=== PATIENT | female | born 1960 | race Caucasian/White ===

== ENCOUNTER 2017-11-11 11:43 | Inpatient (IN) | payer SELFPAY ==
[~2017-11-11] VITALS: Ht 152.4 cm; Wt 47.6 kg
[2017-11-11] MEDS ORDERED: SODIUM CHLORIDE 0.9% 1000ML BAG (SEPSIS BOLUS) IV ONE (13:00)
[2017-11-11] MEDS ORDERED: LEVOFLOXACIN 750MG PREMIX 150 ML IV ONE (13:00)
[2017-11-11] MEDS ORDERED: HALOPERIDOL LACTATE 5MG/ML VIAL IM ONE ×2 (14:45→15:15)
[2017-11-11] MEDS ORDERED: LORAZEPAM 2MG/ML CPJ IM ONE ×2 (14:45→15:15)
[2017-11-11] MEDS ORDERED: DIPHENHYDRAMINE 50MG/ML VIAL IM STA (15:02)
[2017-11-11 15:28] LABS: BASOPHILS % 2.5 % (0.0-2.0); EOSINOPHILS % 0.8 % (0.0-5.0); HEMATOCRIT. 40.2 % (36.0-48.0); HEMOGLOBIN. 13.4 g/dL (12.0-16.0); LYMPHOCYTES % 31.4 % (20.0-50.0); MEAN CORPUSCULAR HEMOGLOBIN 31.5 pg (28.0-32.0); MEAN CORPUSCULAR VOLUME 94.6 fL (81.0-99.0); MEAN PLATELET VOLUME 7.2 fl (7.4-10.4); MONOCYTES % 7.4 % (2.0-8.0); NEUTROPHILS % 57.9 % (40.0-76.0); PLATELET 311 x1000/uL (130-400); RED BLOOD CELL COUNT 4.25 mill/uL (4.2-5.4)
[2017-11-11 15:31] LABS: CHLORIDE 106 mEq/L (98-107)
[2017-11-11 15:36] LABS: PARTIAL THROMBOPLASTIN TIME 25.4 sec (23.4-31.0)
[2017-11-11 15:39] LABS: CLARITY URINE CLEAR (CLEAR); COLOR URINE YELLOW (YELLOW); KETONES URINE NEGATIVE (NEGATIVE); LEUKOCYTE ESTERASE URINE NEGATIVE (NEGATIVE); NITRITE URINE NEGATIVE (NEGATIVE); OCCULT BLOOD URINE NEGATIVE (NEGATIVE); PH URINE 6.5 (4.5-8.0); PROTEIN URINE NEGATIVE (NEGATIVE); SPECIFIC GRAVITY URINE 1.011 (1.005-1.030); UROBILINOGEN URINE 0.2 E.U./dL (0.2-1.0)
[2017-11-11 15:43] LABS: TROPONIN I < 0.02 ng/mL (0.00-0.04)
[2017-11-11] MEDS ORDERED: ASPIRIN 300MG SUPP PR ONE (16:45)
[2017-11-11 16:48] LABS: *AMPHETAMINES SCREEN URINE NEGATIVE (NEGATIVE); *BARBITURATES SCREEN URINE NEGATIVE (NEGATIVE); *BENZODIAZEPINES SCREEN URINE NEGATIVE (NEGATIVE); *COCAINE SCREEN URINE NEGATIVE (NEGATIVE); CANNABINOID URINE SCREEN NEGATIVE (NEGATIVE); METHADONE URINE SCREEN NEGATIVE (NEGATIVE); OPIATES URINE SCREEN PRESUMTIVE POSITIVE (NEGATIVE); PHENCYCLIDINE URINE SCREEN NEGATIVE (NEGATIVE)
[2017-11-11 22:30] VITALS: BP 116/69
[2017-11-11 23:00] VITALS: BP 116/69
[2017-11-12] MEDS ORDERED: DOCUSATE SODIUM 100MG CAPSULE PO PRN (02:15)
[2017-11-12] MEDS ORDERED: GUAIFENESIN 200MG/10ML SUGAR FREE UDC PO PRN (02:15)
[2017-11-12] MEDS ORDERED: ONDANSETRON HCL 4MG/2ML VIAL IV PRN (02:15)
[2017-11-12] MEDS ORDERED: ACETAMINOPHEN 325MG TABLET PO PRN (02:15)
[2017-11-12] MEDS ORDERED: CLONIDINE 0.1MG TABLET PO PRN (02:15)
[2017-11-12] MEDS: DEXT 5%/0.45% NACL 1000ML 1,000 ML IV SCH ×2 (03:59→16:20)
[2017-11-12 04:00] VITALS: BP 135/79
[2017-11-12 08:00] VITALS: BP 139/81
[2017-11-12] MEDS: FOLIC ACID 1MG TABLET PO SCH (08:12)
[2017-11-12] MEDS: MULTIVITAMINS,THER W-MINERALS TABLET PO SCH (08:12)
[2017-11-12] MEDS: THIAMINE HCL 100MG TABLET PO SCH (08:13)
[2017-11-12] MEDS: ASPIRIN 81MG EC TABLET PO SCH (08:13)
[2017-11-12] MEDS: AMLODIPINE 10MG TABLET PO SCH (08:13)
[2017-11-12] MEDS: LORAZEPAM 2MG/ML CPJ IV PRN ×3 (08:14→18:17)
[2017-11-12 12:00] VITALS: BP 107/49
[2017-11-12 16:00] VITALS: BP 126/60
[2017-11-12 20:00] VITALS: BP 115/71
[2017-11-13] VITALS: BP 119/50
[2017-11-13 04:00] VITALS: BP 120/67
[2017-11-13] MEDS: DEXT 5%/0.45% NACL 1000ML 1,000 ML IV SCH ×2 (05:12→12:32)
[2017-11-13 07:10] LABS: EOSINOPHILS % 3.7 % (0.0-5.0); HEMATOCRIT. 39.5 % (36.0-48.0); HEMOGLOBIN. 13.6 g/dL (12.0-16.0); LYMPHOCYTES % 37.4 % (20.0-50.0); MEAN CORPUSCULAR HEMOGLOBIN 32.5 pg (28.0-32.0); MEAN PLATELET VOLUME 7.5 fl (7.4-10.4); MONOCYTES % 8.1 % (2.0-8.0); NEUTROPHILS % 48.8 % (40.0-76.0); PLATELET 266 x1000/uL (130-400); RED CELL DISTRIBUTION WIDTH 12.6 % (11.6-14.6)
[2017-11-13 07:42] LABS: CHLORIDE 104 mEq/L (98-107)
[2017-11-13 08:00] VITALS: BP 124/57
[2017-11-13] MEDS: ASPIRIN 81MG EC TABLET PO SCH (08:29)
[2017-11-13] MEDS: AMLODIPINE 10MG TABLET PO SCH (08:29)
[2017-11-13] MEDS: MULTIVITAMINS,THER W-MINERALS TABLET PO SCH (08:29)
[2017-11-13] MEDS: FOLIC ACID 1MG TABLET PO SCH (08:29)
[2017-11-13] MEDS: THIAMINE HCL 100MG TABLET PO SCH (08:30)
[2017-11-13 12:00] VITALS: BP 117/67
[2017-11-13 16:00] VITALS: BP 122/56
[2017-11-13 20:00] VITALS: BP 106/61
[2017-11-14] VITALS: BP 115/65
[2017-11-14 04:00] VITALS: BP 111/68
[2017-11-14 08:00] VITALS: BP 129/61
[2017-11-14] MEDS: DEXT 5%/0.45% NACL 1000ML 1,000 ML IV SCH (08:20)
[2017-11-14] MEDS: ASPIRIN 81MG EC TABLET PO SCH (08:47)
[2017-11-14] MEDS: AMLODIPINE 10MG TABLET PO SCH (08:48)
[2017-11-14] MEDS: THIAMINE HCL 100MG TABLET PO SCH (08:48)
[2017-11-14] MEDS: FOLIC ACID 1MG TABLET PO SCH (08:48)
[2017-11-14] MEDS: MULTIVITAMINS,THER W-MINERALS TABLET PO SCH (08:48)
== END 2017-11-14 11:00 | disposition home or self-care (01) | DRG 52 ==
LOC: ER 11:50 → 7WST 16:36 → EDBD 16:36 → ENRESERV 19:45
PROVIDERS: ADMIT Hospitalist; ATTEND Hospitalist
DX: G92 Toxic encephalopathy (principal)
CPT/HCPCS: 36415; 70450; 71045; 80053; 80305; 81003; 82962; 83605; 84484; 85025; 85610; 85730; 86850; 86900; 87040; 87086; 93005; 93970; 96365; 96366; 96372; 99285; G0482; J1630; J1956; J2060; J3490; J7030; A4315